=== PATIENT | male | born 1935 | race Caucasian/White ===

== ENCOUNTER 2016-11-11 08:29 | Outpatient (CLI) | payer OTHER ==
--- NOTE | 2016-11-11 09:29 | US ---
Exam: Alejandro-scale and color Doppler ultrasonographic evaluation of the kidneys and urinary bladder . Comparison: 06/03/2016. Reason for exam: Chronic kidney disease. Stage III FINDINGS: Technically limited examination secondary to body habitus. The right kidney measures approximately 8.38 x 5.02 x 3.67 cm. No hydronephrosis or nephrolithiasis. The left kidney measures approximately 9.99 x 4.47 x 5.3 cm with no hydronephrosis, and no nephrolit hiasis. The bladder wall is smoothly marginated measuring approximately 5.64 x 7.02 x 10.81 cm. The bladder wall measures approximately 4.6 mm in thickness. Impression: 1. Limited ultrasonographic evaluation of the kidneys and urinary bladder secondary to body habitus . 2. No acute imaging abnormality of the renal collecting systems
== END 2016-11-11 08:30 | disposition home or self-care (01) ==
LOC: RAD 08:29
PROVIDERS: ATTEND Family Medicine
DX: N18.3 Chronic kidney disease, stage 3 (moderate) (principal)
CPT/HCPCS: 76770

== ENCOUNTER 2017-03-13 14:05 | Emergency (ER) ==
[2017-03-13] MEDS ORDERED: SOLU-MEDROL 125 MG IVP STA (14:15)
[2017-03-13] MEDS ORDERED: DUONEB NEB STA ×2 (14:15→15:33)
[2017-03-13 14:30] VITALS: BP 93/53; TEMP 102.6; BMI 38.0
[2017-03-13 14:36] LABS: ABG BASE EXCESS -7 (-2.0-2.0); ABG HCO3 25.7 (22.0-26.0); ABG PCO2 50.4 mmHg (35-45); ABG PH 7.315 (7.35-7.45); ABG TCO2 27 (22.0-28.0)
[2017-03-13 14:42] LABS: BASOPHILS % (AUTO) 0.4 % (0.0-3.0); EOSINOPHILS # (AUTO) 0.1 K/ul (0.0-0.7); EOSINOPHILS % (AUTO) 0.9 % (0.0-7.0); HEMATOCRIT 36.7 % (42.0-52.0); IMMATURE GRANULOCYTE % (AUTO) 0.4 % (0.0-5.0); LYMPHOCYTES # (AUTO) 0.5 K/uL (0.60-3.4); MEAN CORPUSCULAR HEMOGLOBIN 26.9 pg (27.0-31.0); MEAN CORPUSCULAR HGB CONC 32.7 (31.8-35.4); MEAN CORPUSCULAR VOLUME 82.3 fl (80.0-94.0); MONOCYTES # (AUTO) 0.6 K/uL (0.4-2.0); MONOCYTES % (AUTO) 7.3 (0-10); NEUTROPHILS # (AUTO) 6.4 K/ul (2.0-6.9); PLATELET COUNT 149 10^3/uL (140-440); RED BLOOD COUNT 4.46 10^6/ul (4.70-6.10); WHITE BLOOD COUNT 7.58 K/ul (4.2-10.2)
[2017-03-13] MEDS ORDERED: LASIX IVP STA (14:43)
--- NOTE | 2017-03-13 14:52 | DI ---
EXAM: Chest one view, frontal view only. HISTORY: Shortness of air. COMPARISON: 05/16/2018. FINDINGS: Cardiac silhouette appears mildly enlarged although may be accentuated by low lung volume s. There is increased opacity over the left lung base with obscuration of the left diaphragm. Mild haziness seen over the right diaphragm Lungs otherwise clear. Prominence of the right hilar vascul ature likely accentuated by technique. No large pleural effusion or pneumothorax identified. Clips seen over the left axilla. IMPRESSION: 1. Suspect left basilar consolidation, which could represent pneumonia. 2. Mild right basilar atelectasis.
[2017-03-13] MEDS ORDERED: ROCEPHIN 2 GM in SODIUM CHLORIDE 100 ML IV STA (14:56)
[2017-03-13] MEDS ORDERED: ROCEPHIN ONE (15:02)
[2017-03-13 15:19] LABS: ALBUMIN 3.3 g/dL (3.4-5.0); ALBUMIN/GLOBULIN RATIO 0.79; ANION GAP 17.1; BILIRUBIN,TOTAL 0.55 mg/dL (0.00-1.20); BUN/CREATININE RATIO 21.39; CALCIUM 9.7 mg/dL (8.2-10.2); CREATININE 2.01 mg/dL (0.60-1.10); TOTAL PROTEIN 7.5 g/dL (5.8-8.1); TROPONIN I 0.119 ng/ml (0.0000-0.4000)
--- NOTE | 2017-03-13 15:21 | ED.PDOC ---
General ED Provider: Dr. DAVINA MACARIO Chief Complaint: Respiratory Complaint Stated Complaint: acutely short of breath Time Seen by Physician: 14:12 (AT 9 AM BECAME ACUTELY SOB , HAD CHILLS ) Mode of Arrival: Ambulance Information Source: Patient, Family Exam Limitations: No limitations Primary Care Provider: ANNE MARIE STALLINGS Nursing and Triage Documentation Reviewed and Agree: Yes (SOB OVER 3 WEEKS BECAME WORSE TODAY FEVER TODAY) Respiratory Complaint Exam - Shortness of Air Complaint/Exam Onset/Duration: SHORT OFAIR X1 HR Symptoms Are: Still present Timing: Constant Initial Severity: Moderate Current Severity: Moderate Character: Reports: Dyspnea at rest, Dyspnea on exertion, Orthopnea Aggravating: Reports: Movement, Deep breaths, Recumbent position Alleviating: Reports: Bronchodilators, Upright position Associated Signs and Symptoms: Reports: Cough, Wheezing. Denies: Chest pain with cough, Chest pain, Fever, Chills, Diaphoresis, Nasal congestion, Dizziness , Calf pain, Calf swelling, Edema, Rapid breathing, Labored breathing, Decreased intake Related History: Reports: Similar episode History of Healthcare-Acquired Pneumonia: No Pulmonary Embolism Risk Factors: Reports: Bedrest Review of Systems - Review Of Systems Constitutional: Reports: Fever, Malaise, Weakness Eyes: Reports: No symptoms Ears, Nose, Mouth, Throat: Reports: No symptoms Respiratory: Reports: Cough, Short of air, Wheezing Cardiac: Reports: No symptoms GI: Reports: No symptoms : Reports: No symptoms Musculoskeletal: Reports: No symptoms Skin: Reports: No symptoms Neurological: Reports: No symptoms Endocrine: Reports: No symptoms Hematologic/Lymphatic: Reports: No symptoms All Other Systems: Reviewed and Negative Past Medical History - Past Medical History Previously Healthy: No Endocrine: Reports: DM 2 Cardiovascular: Reports: CAD (STENTSX 3 ), Hypertension Respiratory: Reports: COPD Hematological: Reports: Anemia Gastrointestinal: Reports: None Genitourinary: Reports: None Neuro/Psych: Reports: None Musculoskeletal: Reports: None Cancer: Reports: None - Surgical History General Surgical History: Reports: Adenoidectomy, Stent, Orthopedic (KNEE ) - Family History Family History: Reports: None - Social History Smoking Status: Former smoker Hx Substance Use: Yes Alcohol Screening: None - Immunizations Tetanus Shot up to Date: No Physical Exam - Physical Exam Appearance: Ill-appearing Ill-appearing: Moderate Pain Distress: Moderate Eyes: SAKINA, EOMI, Conjunctiva clear ENT: Ears normal, Nose normal, Oropharynx normal Respiratory: Crackles, Wheezes Cardiovascular: RRR, Pulses normal, No rub, No murmur GI/: Soft, Nontender, No masses, Bowel sounds normal, No Organomegaly Musculoskeletal: Normal strength, ROM intact, No edema, No calf tenderness Skin: Warm, Dry, Normal color Neurological: Sensation intact, Motor intact, Reflexes intact, Cranial nerves intact, Alert, Oriented Psychiatric: Affect appropriate, Mood appropriate Interpretation - Radiology Interpretation Radiology Interpretation By: Radiologist Radiology Results: Positive (RLOWER LOBE PNEUMONIA) - Flexible Shaft Winder Rate: Tachy Rhythm: Sinus - EKG Interpretation Rate: Tachy Rhythm: Sinus Ectopy: PVCs Physician Notification - Case Discussed Physician Notified: PMD Time of Notification: 15:30 (TRANSFER TO [facility] ICU) Critical Care Note - Critical Care Note Total Time (mins): 1 Course - Course Hematology/Chemistry: 03/13/17 14:32 03/13/17 14:32 Orders, Labs, Meds: Lab Review 03/13/17 03/13/17 14:20 14:32 WBC 7.58 RBC 4.46 L Hgb 12.0 L Hct 36.7 L MCV 82.3 MCH 26.9 L MCHC 32.7 RDW Coeff of Marissa 15.0 H Plt Count 149 Immature Gran % (Auto) 0.4 Neut % (Auto) 84.0 Lymph % (Auto) 7.0 L [place] % (Auto) 7.3 Eos % (Auto) 0.9 Baso % (Auto) 0.4 Immature Gran # (Auto) 0.0 Neut # 6.4 Lymph # 0.5 L [place] # 0.6 Eos # 0.1 Baso # 0.0 D-Dimer (Manual) 1962.47 Puncture Site R rad O2 Saturation 95.0 ABG pH 7.315 L ABG pCO2 50.4 H ABG pO2 81.0 L ABG HCO3 25.7 ABG Total CO2 27 ABG Base Excess -7 L Patricio Test + O2 Delivery Device Nrb Oxygen Liter Flow 15.00 Sodium 137 Potassium 6.1 H* Chloride 100 Carbon Dioxide 26 Anion Gap 17.1 BUN 43 H Creatinine 2.01 H Estimated GFR (MDRD) 32.00 BUN/Creatinine Ratio 21.39 Glucose 235 H Lactic Acid 21.4 H Calcium 9.7 Total Bilirubin 0.55 AST 21 ALT 19 Alkaline Phosphatase 57 Total Creatine Kinase 384 CK-MB (CK-2) 3.0 CK-MB (CK-2) % 0.18213 Troponin I 0.1190 B-Natriuretic Peptide 231 H Total Protein 7.5 Albumin 3.3 L Globulin 4.2 Albumin/Globulin Ratio 0.79 Procalcitonin 8.13 Orders Category Date Time Status ABG DRAW REQUEST Stat CARDIO 03/13/17 14:14 Completed EKG-(ED ONLY) Stat CARDIO 03/13/17 14:14 Completed EKG-(ED ONLY) Stat CARDIO 03/13/17 15:29 Ordered NEBULIZER TREATMENT Stat CARDIO 03/13/17 14:15 Completed ED IV/MEDIPORT/POWERPORT .ONCE EMERGENCY 03/13/17 14:14 Active ABG Stat LAB 03/13/17 14:20 Completed B-TYPE NATRIURETIC PEPTIDE Stat LAB 03/13/17 14:32 Completed BLOOD CULTURE Stat LAB 03/13/17 14:32 Received CBC W/ AUTO DIFF Stat LAB 03/13/17 14:32 Completed COMPREHENSIVE METABOLIC PANEL Stat LAB 03/13/17 14:32 Completed CREATINE KINASE Stat LAB 03/13/17 14:32 Completed D-DIMER Stat LAB 03/13/17 14:32 Completed LACTIC ACID Stat LAB 03/13/17 14:32 Completed PROCALCITONIN Stat LAB 03/13/17 14:32 Completed TROPONIN I Stat LAB 03/13/17 14:32 Completed 0.9 % Sodium Chloride [Saline Flush] MEDS 03/13/17 14:14 Active 1 syr IVF PRN PRN Ceftriaxone Sodium [Rocephin] MEDS 03/13/17 15:02 Discontinued 2 gm .ROUTE .STK-MED ONE Ceftriaxone Sodium [Rocephin] 2 gm MEDS 03/13/17 14:56 Active 0.9 % Sodium Chloride [Sodium Chloride] 100 ml IV ONCE Furosemide [Lasix] MEDS 03/13/17 14:43 Discontinued 40 mg IVP ONCE STA Insulin Regular, Human [Humulin R] MEDS 03/13/17 15:29 Stat 4 unit SUBCUT ONCE STA Ipratropium/Albuterol Neb [Duoneb] MEDS 03/13/17 14:15 Discontinued 1 vial NEB ONCE STA Methylprednisolone Sod Succ/Pf [Solu-Medrol 125 mg] MEDS 03/13/17 14:15 Discontinued 125 mg IVP ONCE STA CHEST, 1V AP ONLY Stat RADS 03/13/17 14:29 Completed Medications Generic Name Dose Route Start Last Admin Trade Name Freq PRN Reason Stop Dose Admin Ceftriaxone Sodium 2 gm/ 100 mls @ 100 mls/hr 03/13/17 14:56 03/13/17 15:14 Sodium Chloride IV 03/13/17 15:55 100 mls/hr ONCE STA Administration Insulin Human Regular 4 unit 03/13/17 15:29 Humulin R SUBCUT 03/13/17 15:30 ONCE STA Sodium Chloride 1 syr 03/13/17 14:14 Saline Flush IVF PRN PRN To flush IV Discontinued Medications Generic Name Dose Route Start Last Admin Trade Name Freq PRN Reason Stop Dose Admin Albuterol/Ipratropium 1 vial 03/13/17 14:15 03/13/17 14:16 Duoneb NEB 03/13/17 14:16 1 vial ONCE STA Administration Furosemide 40 mg 03/13/17 14:43 03/13/17 14:47 Lasix IVP 03/13/17 14:44 40 mg ONCE STA Administration Methylprednisolone Sodium Succinate 125 mg 03/13/17 14:15 03/13/17 14:41 Solu-Medrol 125 Mg IVP 03/13/17 14:16 125 mg ONCE STA Administration Vital Signs: Temp Pulse Resp BP Pulse Ox 03/13/17 14:12 102.6 F H 110 H 28 H 93/53 L 96 Departure - Departure Time of Disposition: 16:00 Disposition: TSF SHORT-TRM HOSP Discharge Problem: COPD exacerbation, Hyperkalemia Pneumonia Qualifiers: Pneumonia type: due to unspecified organism Laterality: right Lung location: lower lobe of lung Qualifier Code: (J18.1) Lobar pneumonia, unspecified organism Anemia Qualifiers: Anemia type: unspecified type Qualifier Code: (D64.9) Anemia, unspecified Acute renal failure Qualifiers: Acute renal failure type: unspecified Qualifier Code: (N17.9) Acute kidney failure, unspecified Instructions: Pneumonitis (ED) Condition: Good Pt referred to PMD for follow-up: Yes (TRANSFER ) Allergies/Adverse Reactions: Allergies No Known Allergies Allergy (Verified 03/13/17 14:52) Home Medications: Ambulatory Orders Amitriptyline HCl 50 mg PO BEDTIME 03/13/17 Aspirin [Aspirin EC] 81 mg PO DAILYWM 03/13/17 Clopidogrel Bisulfate [Plavix] 75 mg PO DAILY 03/13/17 Furosemide [Lasix Tab] 40 mg PO BIDAC 03/13/17 Gabapentin [Neurontin] 300 mg PO BEDTIME 03/13/17 Glipizide [Glipizide ER] 5 mg PO BID 03/13/17 Hydrocodone Bit/Acetaminophen [[place] 10-325] 1 tab PO BID 03/13/17 Hydrocortisone [Cortef] 10 mg PO BID 03/13/17 Insulin Glargine,Hum.rec.anlog [Lantus] 50 unit SUBCUT BEDTIME 03/13/17 Krill/Om-3/Dha/Epa/Phospho/Ast [[place]ared [place]-3 Krill Oil Sfgl] 1 each PO DAILY 03/13/17 Metoprolol Tartrate [Lopressor] 50 mg PO BID 03/13/17 Potassium Chloride [K-Dur] 20 meq PO BID 03/13/17 Pravastatin Sodium [Pravachol] 80 mg PO DAILY 03/13/17 Tamsulosin HCl [Flomax] 1 cap PO BID 03/13/17 Tizanidine HCl [Zanaflex] 2 mg PO BID 03/13/17 Valsartan 40 mg PO DAILY 03/13/17 Disposition Discussed With: Patient, Family
[2017-03-13 15:23] LABS: POTASSIUM 6.1 mmol/L (3.5-5.1)
[2017-03-13] MEDS ORDERED: HUMULIN R SUBCUT STA (15:29)
== END 2017-03-13 16:40 | disposition short-term general hospital (02) ==
LOC: ED 14:05
DX: J44.0 Chronic obstructive pulmonary disease with (acute) lower respiratory infection (principal); J18.1 Lobar pneumonia, unspecified organism; J44.1 Chronic obstructive pulmonary disease with (acute) exacerbation; E87.5 Hyperkalemia; D64.9 Anemia, unspecified; N17.9 Acute kidney failure, unspecified; R06.02 Shortness of breath; E11.9 Type 2 diabetes mellitus without complications; I25.10 Atherosclerotic heart disease of native coronary artery without angina pectoris; I10 Essential (primary) hypertension; Z95.5 Presence of coronary angioplasty implant and graft; Z79.899 Other long term (current) drug therapy
CPT/HCPCS: 36415; 80053; 82550; 82553; 82803; 83605; 83880; 84145; 84484; 85025; 85379; 87040; 87070; 93005; 93010; 94640; 96365; 96372; 96375; 99285